=== PATIENT | male | born 1975 ===

== ENCOUNTER → 2018-05-25 | Emergency (ER) | payer OTHER ==
[~2018-05-25] VITALS: Ht 152.4 cm; Wt 59.0 kg
== END | disposition home or self-care (01) ==
LOC: ER 15:02
DX: F20.89 Other schizophrenia (principal)

== ENCOUNTER → 2018-05-28 | Emergency (ER) | payer OTHER ==
[~2018-05-28] VITALS: Ht 172.7 cm; Wt 72.6 kg
== END | disposition left against medical advice (07) ==
LOC: ER 12:50
DX: Z53.20 Procedure and treatment not carried out because of patient's decision for unspecified reasons (principal)

== ENCOUNTER → 2018-06-25 | Emergency (ER) | payer OTHER ==
[~2018-06-25] VITALS: Ht 170.2 cm; Wt 73.9 kg
== END | disposition left against medical advice (07) ==
LOC: ER 12:11
DX: Z53.20 Procedure and treatment not carried out because of patient's decision for unspecified reasons (principal)

== ENCOUNTER 2018-07-19 10:56 | Emergency (ER) | payer OTHER ==
[~2018-07-19] VITALS: Ht 175.3 cm; Wt 86.2 kg
[2018-07-19] MEDS ORDERED: ABILIFY10 MG (11:31)
[2018-07-19] MEDS ORDERED: RISPERDAL2 MG (11:31)
[2018-08-01] MEDS ORDERED: BENADRYL50 MG PO (10:54)
== END 2018-07-19 14:12 | disposition home or self-care (01) ==
LOC: ER 10:56
DX: K59.09 Other constipation (principal)

== ENCOUNTER → 2018-07-20 | Emergency (ER) | payer OTHER ==
[~2018-07-20] VITALS: Ht 172.7 cm; Wt 77.1 kg
[~2018-07-20] MED LIST: ABILIFY10 MG; BENADRYL50 MG PO; RISPERDAL2 MG
== END | disposition left against medical advice (07) ==
LOC: ER 14:07
DX: Z53.20 Procedure and treatment not carried out because of patient's decision for unspecified reasons (principal)

== ENCOUNTER 2018-08-17 08:04 | Emergency (ER) | payer OTHER ==
[~2018-08-17] VITALS: Ht 172.7 cm; Wt 81.6 kg
== END 2018-08-17 08:49 | disposition home or self-care (01) ==
LOC: ER 08:04
DX: M25.562 Pain in left knee (principal); M25.561 Pain in right knee; F31.89 Other bipolar disorder

== ENCOUNTER 2018-10-15 13:26 | Emergency (ER) | payer OTHER ==
[~2018-10-15] VITALS: Ht 167.6 cm; Wt 77.1 kg
== END 2018-10-15 15:30 | disposition home or self-care (01) ==
LOC: ER 13:26
DX: K59.09 Other constipation (principal)

== ENCOUNTER → 2018-11-07 | Emergency (ER) | payer OTHER | END | disposition left against medical advice (07) | LOC: ER 13:09 | DX: Z53.21 Procedure and treatment not carried out due to patient leaving prior to being seen by health care provider (principal) ==

== ENCOUNTER → 2018-12-21 | Emergency (ER) | payer OTHER ==
[~2018-12-21] VITALS: Ht 172.7 cm; Wt 78.0 kg
== END | disposition left against medical advice (07) ==
LOC: ER 11:56
DX: Z53.20 Procedure and treatment not carried out because of patient's decision for unspecified reasons (principal)

== ENCOUNTER → 2018-12-27 | Emergency (ER) | payer OTHER ==
[~2018-12-27] VITALS: Ht 170.2 cm; Wt 77.1 kg
== END | disposition left against medical advice (07) ==
LOC: ER 13:53
DX: Z53.20 Procedure and treatment not carried out because of patient's decision for unspecified reasons (principal)

== ENCOUNTER → 2018-12-29 | Emergency (ER) | payer OTHER | END | disposition left against medical advice (07) | LOC: ER 10:45 | DX: Z53.20 Procedure and treatment not carried out because of patient's decision for unspecified reasons (principal) ==

== ENCOUNTER 2019-01-26 13:56 | Emergency (ER) | payer OTHER ==
[~2019-01-26] VITALS: Ht 167.6 cm; Wt 79.8 kg
== END 2019-01-26 16:32 | disposition home or self-care (01) ==
LOC: ER 13:56
DX: R44.0 Auditory hallucinations (principal)

== ENCOUNTER → 2019-03-13 | Emergency (ER) | payer OTHER ==
[~2019-03-13] VITALS: Ht 172.7 cm; Wt 86.2 kg
== END | disposition left against medical advice (07) ==
LOC: ER 13:37
DX: R41.82 Altered mental status, unspecified (principal)

== ENCOUNTER 2019-06-20 11:08 | Emergency (ER) | payer OTHER ==
[~2019-06-20] VITALS: Ht 167.6 cm; Wt 83.9 kg
[2019-06-26] MEDS ORDERED: RISPERDAL1 MG (22:27)
[2019-06-26] MEDS ORDERED: BENADRYL50 MG (22:30)
== END 2019-06-20 14:49 | disposition home or self-care (01) ==
LOC: ER 11:08
DX: F28 Other psychotic disorder not due to a substance or known physiological condition (principal)

== ENCOUNTER → 2019-06-26 | Emergency (ER) | payer OTHER ==
[~2019-06-26] VITALS: Ht 177.8 cm; Wt 83.9 kg
[~2019-06-26] MED LIST changes: +BENADRYL50 MG; +RISPERDAL1 MG
== END | disposition left against medical advice (07) ==
LOC: ER 22:13
DX: Z53.20 Procedure and treatment not carried out because of patient's decision for unspecified reasons (principal)

== ENCOUNTER → 2020-11-27 | Emergency (ER) | payer OTHER ==
[~2020-11-27] VITALS: Ht 170.2 cm; Wt 68.0 kg
== END | disposition left against medical advice (07) ==
LOC: ER 13:07
DX: Z53.20 Procedure and treatment not carried out because of patient's decision for unspecified reasons (principal)

== ENCOUNTER 2021-03-19 16:49 | Emergency (ER) | payer OTHER ==
[~2021-03-19] VITALS: Ht 170.2 cm; Wt 61.7 kg
== END 2021-03-19 20:33 | disposition home or self-care (01) ==
LOC: ER 16:49
DX: R53.1 Weakness (principal)